=== PATIENT | male | born 1985 | race Caucasian/White ===

== ENCOUNTER 2022-05-01 13:48 | Inpatient (IN) | payer OTHER ==
[~2022-05-01] VITALS: Ht 172.7 cm; Wt 94.5 kg
[2022-05-01] MEDS ORDERED: PANTOPRAZOLE SODIUM 40 MG/VIAL IVP ONE (14:45)
[2022-05-01] MEDS ORDERED: ONDANSETRON HCL 4 MG/2 ML VIAL IVP PRN (14:45)
[2022-05-01 15:08] LABS: BASOPHILS % (AUTO) 0.4 % (0.0-2.0); EOSINOPHILS % (AUTO) 6.3 % (1.0-6.0); HEMATOCRIT 43.3 % (41-53); HEMOGLOBIN 14.6 g/dL (13.5-17.5); LYMPHOCYTES # (AUTO) 1.6 K/uL (1.0-4.8); MEAN CORPUSCULAR HEMOGLOBIN 29.8 pg (26.0-34.0); MEAN CORPUSCULAR HGB CONC 33.7 G/dL (31.0-37.0); MEAN CORPUSCULAR VOLUME 89 fL (80-100); MONOCYTES # (AUTO) 0.8 K/uL (0.1-1.0); MONOCYTES % (AUTO) 7.2 % (2.0-9.0); NEUTROPHILS # (AUTO) 7.5 K/uL (1.8-7.7); NEUTROPHILS % (AUTO) 71.1 % (40.0-70.0); PLATELET COUNT (AUTO) 234 K/uL (150-450); RED BLOOD CELL COUNT(AUTO) 4.89 MIL/uL (4.50-5.90)
[2022-05-01 15:17] LABS: ANION GAP 6 mmol/L (8-16); CALCIUM, TOTAL 9.1 mg/dL (8.8-10.5); CARBON DIOXIDE 30 mmol/L (22-29); CHLORIDE 105 mmol/L (98-107); CREATININE 0.91 mg/dL (0.60-1.30); GLUCOSE,RANDOM 101 mg/dL (70-110); SODIUM SERUM 141 mmol/L (136-145); UREA NITROGEN, BLOOD 5 mg/dL (7-18)
[2022-05-01 15:20] LABS: GLOMERULAR FILTR. RATE CALC > 60 mL/min (>60)
[2022-05-01 15:23] LABS: ALANINE AMINOTRANSFERASE 249 U/L (12-78); ALBUMIN 3.4 g/dL (3.4-5.0); ALKALINE PHOSPHATASE 89 U/L (46-116); ASPARTATE AMINOTRANSFERASE 327 U/L (15-37); BILIRUBIN,TOTAL 0.3 mg/dL (0.1-1.0); LIPASE 69 U/L (73-393); TOTAL PROTEIN, SERUM 6.8 g/dL (6.4-8.2)
[2022-05-01 15:25] LABS: LACTIC ACID 1.3 mmol/L (0.4-2.0)
[2022-05-01] MEDS: PANTOPRAZOLE SODIUM 80 MG in SODIUM CHLORIDE 0.9% 100 ML IV SCH (15:31)
[2022-05-01 16:19] LABS: COVID AG,FIA SOURCE NASAL SWAB
[2022-05-01 16:45] LABS: INFLUENZA TYPE A NEGATIVE FOR TYPE A (NEGATIVE); INFLUENZA TYPE B NEGATIVE FOR TYPE B (NEGATIVE)
[2022-05-01 18:21] LABS: APPEARANCE,URINE CLEAR (CLEAR); BILIRUBIN,URINE NEGATIVE (NEGATIVE); GLUCOSE, URINE (UA) NEGATIVE (NEGATIVE); KETONES,URINE NEGATIVE (NEGATIVE); LEUKOCYTE ESTERASE ,URINE NEGATIVE (NEGATIVE); NITRATE,URINE NEGATIVE (NEGATIVE); OCCULT BLOOD,URINE NEGATIVE (NEGATIVE); PROTEIN,URINE NEGATIVE (NEGATIVE); SPECIFIC GRAVITIY, URINE 1.014 (1.003-1.030); UROBILINOGEN,URINE <=1.0 mg/dL (<=1.0)
[2022-05-01 18:38] LABS: BACTERIA,URINE None Seen /HPF (None Seen); RBC,URINE None Seen /HPF (0-2); SQUAMOUS EPITHELIAL CELL,UR Few /LPF (None Seen); WBC,URINE None Seen /HPF (0-5)
[2022-05-01 19:58] VITALS: BP 120/68
[2022-05-01] MEDS: ACETAMINOPHEN 325 MG TABLET PO PRN (19:58)
[2022-05-01] MEDS ORDERED: SODIUM CHLORIDE 0.9% 500 ML IV ONE (21:02)
[2022-05-02] MEDS: PANTOPRAZOLE SODIUM 80 MG in SODIUM CHLORIDE 0.9% 100 ML IV SCH (01:26)
[2022-05-02 04:06] LABS: HIV 1-2 SCREEN 4TH GEN W/RFLX Non Reactive (Non Reactive)
[2022-05-02 04:26] VITALS: BP 113/76
[2022-05-02] MEDS: ACETAMINOPHEN 325 MG TABLET PO PRN (08:40)
[2022-05-02 10:51] VITALS: BP 117/77
[2022-05-02 20:01] VITALS: BP 116/65
[2022-05-03 05:29] VITALS: BP 121/62
[2022-05-03] MEDS: GuaiFENesin/D-METHORPHAN [SUGAR-FREE] 200-20MG/10 ML SYRUP UDCUP PO PRN ×2 (05:29→20:21)
[2022-05-03 07:13] VITALS: BP 117/76
[2022-05-03 15:31] VITALS: BP 111/73
[2022-05-03 20:25] VITALS: BP 115/74
[2022-05-04 05:07] VITALS: BP 115/66
[2022-05-04 08:00] VITALS: BP 120/68
[2022-05-04] MEDS: GuaiFENesin/D-METHORPHAN [SUGAR-FREE] 200-20MG/10 ML SYRUP UDCUP PO PRN ×2 (09:19→20:22)
[2022-05-04 12:06] LABS: QUANTIFERON, TB GOLD PLUS Negative (Negative)
[2022-05-04 16:16] VITALS: BP 124/77
[2022-05-04 20:30] VITALS: BP 107/72
[2022-05-05 04:42] VITALS: BP 127/83
[2022-05-05 07:42] VITALS: BP 118/68
[2022-05-05] MEDS: GuaiFENesin/D-METHORPHAN [SUGAR-FREE] 200-20MG/10 ML SYRUP UDCUP PO PRN (08:42)
[2022-05-05 15:51] VITALS: BP 115/71
== END 2022-05-05 18:55 | DRG 384 ==
LOC: EMS 14:04 → 6N 15:04 → 6S 05-03 22:20
PROVIDERS: ADMIT Internal Medicine; ATTEND Internal Medicine
DX: K27.9 Peptic ulcer, site unspecified, unspecified as acute or chronic, without hemorrhage or perforation (principal); J45.909 Unspecified asthma, uncomplicated; I10 Essential (primary) hypertension; Z20.822 Contact with and (suspected) exposure to COVID-19; Z79.899 Other long term (current) drug therapy; Z03.89 Encounter for observation for other suspected diseases and conditions ruled out
CPT/HCPCS: 71046; 80053; 81001; 83605; 83690; 84484; 85025; 86480; 87015; 87206; 87389; 87556; 87804; 93005; 94640; 99285; C9113; J7040; J7050; 36415-L1; 36415-TC